=== PATIENT | male | born 1990 | race African-American/Black ===

== ENCOUNTER 2021-03-08 10:12 | Emergency (ER) | payer MEDICAID, OTHER ==
[~2021-03-08] VITALS: Ht 188 cm; Wt 104.8 kg
[2021-03-08 13:05] VITALS: BP 113/77
== END 2021-03-08 14:19 | disposition home or self-care (01) ==
LOC: ER 10:12
DX: R51.9 Headache, unspecified (principal); Z98.890 Other specified postprocedural states; V49.59XA Passenger injured in collision with other motor vehicles in traffic accident, initial encounter; Y93.89 Activity, other specified; Y92.488 Other paved roadways as the place of occurrence of the external cause; Y99.8 Other external cause status
CPT/HCPCS: 70450